=== PATIENT | female | born 1990 | race Caucasian/White ===

== ENCOUNTER → 2018-07-25 15:19 | Outpatient (CLI) | payer MEDICAID, SELFPAY ==
[2018-07-31 10:35] LABS: HPV Reflexed? NOT INDICATED
== END ==
PROVIDERS: Visit Provider Obstetrics & Gynecology
DX: Z12.4 Encounter for screening for malignant neoplasm of cervix (principal)
CPT/HCPCS: 88175; G0145

== ENCOUNTER → 2019-08-18 17:02 | Outpatient (CLI) | payer BC, SELFPAY ==
[2019-08-22 09:07] LABS: Age Gdln ACOG Testing 21-29 (.)
[2019-08-22 13:04] LABS: HPV Reflexed? NOT INDICATED
== END ==
PROVIDERS: Referring Provider Obstetrics & Gynecology; Visit Provider Obstetrics & Gynecology
DX: Z12.4 Encounter for screening for malignant neoplasm of cervix (principal)
CPT/HCPCS: 88175; G0145

== ENCOUNTER → 2019-10-21 09:16 | Outpatient (CLI) | payer BC, SELFPAY | PROVIDERS: PCP Nurse Practitioner; Referring Provider Nurse Practitioner; Visit Provider Nurse Practitioner | DX: R00.2 Palpitations (principal) | CPT/HCPCS: 93225; 93226 ==

== ENCOUNTER 2020-03-15 15:30 | Outpatient (RCR) | payer BC, SELFPAY | END 2020-03-15 23:59 | disposition home or self-care (01) | LOC: DC 15:30 | PROVIDERS: PCP Nurse Practitioner; Visit Provider Nurse Practitioner | DX: Z71.3 Dietary counseling and surveillance (principal); E11.65 Type 2 diabetes mellitus with hyperglycemia; E66.9 Obesity, unspecified | CPT/HCPCS: 97802; G0108 ==

== ENCOUNTER → 2020-09-08 16:37 | Outpatient (CLI) | payer BC, SELFPAY ==
[2020-09-14 16:29] LABS: HPV Reflexed? NOT INDICATED
== END ==
PROVIDERS: PCP Nurse Practitioner; Visit Provider Student in an Organized Health Care Education/Training Program
DX: Z12.4 Encounter for screening for malignant neoplasm of cervix (principal)
CPT/HCPCS: 88175; G0145

== ENCOUNTER → 2021-07-11 | Outpatient (CLI) | payer MEDICARE, SELFPAY | END | disposition home or self-care (01) | LOC: LABSPEC 14:20 | PROVIDERS: PCP Nurse Practitioner; Referring Provider Physician Assistant; Visit Provider Physician Assistant | DX: U07.1 COVID-19 (principal) | CPT/HCPCS: 87635; U0005; U0003 ==